=== PATIENT | male | born 1945 | race Caucasian/White ===

== ENCOUNTER 2021-02-21 17:16 | Emergency (ER) | payer OTHER ==
[~2021-02-21] VITALS: Ht 162.6 cm; Wt 66.0 kg
[2021-02-21] MEDS ORDERED: TRAM300C3 PO (17:31)
[2021-02-21] MEDS ORDERED: ATOR10TA69 PO (17:36)
[2021-02-21] MEDS ORDERED: ASPI-864 PO (17:36)
[2021-02-21] MEDS ORDERED: MORPHINE SULFATE 4 MG/ML CPJ (NOT FOR IM USE) IV ONE (18:30)
[2021-02-21 18:55] LABS: HEMATOCRIT. 35.6 % (42.0-52.0); MEAN CORPUSCULAR VOLUME 85.8 fL (80.0-94.0); PLATELET 196 x1000/uL (130-400); RED BLOOD CELL COUNT 4.15 mill/uL (4.7-6.1); RED CELL DISTRIBUTION WIDTH 15.4 % (11.6-14.6)
[2021-02-21 19:03] LABS: CHLORIDE 103 mEq/L (98-107)
[2021-02-21 21:12] LABS: PLATELET ESTIMATE NORMAL
[2021-02-21 21:15] VITALS: BP 162/81
== END 2021-02-21 22:03 | disposition short-term general hospital (02) ==
LOC: ER 17:16
DX: S22.32XA Fracture of one rib, left side, initial encounter for closed fracture (principal); I10 Essential (primary) hypertension; I25.2 Old myocardial infarction; N40.0 Benign prostatic hyperplasia without lower urinary tract symptoms; W06.XXXA Fall from bed, initial encounter; Y93.89 Activity, other specified; Y92.9 Unspecified place or not applicable; Z79.82 Long term (current) use of aspirin
CPT/HCPCS: 36415; 71045; 71100; 80053; 85025; 93005; 96374; 99285; J2270